=== PATIENT | female | born 1945 | race Caucasian/White ===

== ENCOUNTER → 2017-03-01 | Outpatient (CLI) | payer MEDICARE, OTHER ==
[~2017-03-01] MED LIST: ALLO100T PO; AMLO10TA2 PO; ASPI81CH25 PO; ATOR10TA15 PO; DOCU1CAP39 PO; FERR325T20 PO; FIBE625T PO; FOSI40TA PO; FURO1TAB60 PO; GLUC500T4 PO; HYDR-3516 PO; LISI-515 PO; METO25TA3 PO; MULT-65 PO; OMEP20TA PO; PLAV75TA29 PO; POLY17S PO; POTA-163 PO
[2017-03-01 10:49] LABS: AUTOMATED NEUTROPHIL # 4.4 TH/MM3 (1.8-7.7); BASOPHIL # 0.3 TH/MM3 (0-0.2); BASOPHIL % 2.7 % (0.0-2.0); EOSINOPHIL # 0.5 TH/MM3 (0-0.4); EOSINOPHIL % 5.2 % (0.0-4.0); HEMATOCRIT 38.5 % (35.0-46.0); HEMO FLAGS DIFF FINAL; LYMPH % 35.7 % (9.0-44.0); LYMPHOCYTE # 3.3 TH/MM3 (1.0-4.8); MEAN CELL VOLUME 86.3 FL (80.0-100.0); MEAN CORPUSCULAR HEMOGLOBIN 28.6 PG (27.0-34.0); MEAN CORPUSCULAR HGB CONC 33.2 % (32.0-36.0); MONO % 8.6 % (0.0-8.0); NEUT % 47.8 % (16.0-70.0); PLATELET COUNT 350 TH/MM3 (150-450); RED BLOOD COUNT 4.45 MIL/MM3 (4.00-5.30); RED CELL DISTRIBUTION WIDTH 12.8 % (11.6-17.2); WHITE BLOOD COUNT 9.2 TH/MM3 (4.0-11.0)
[2017-03-01 10:55] LABS: APTT (PATIENT) 26.5 SEC (24.3-30.1); PROTHROMBIN TIME - PATIENT 10.7 SEC (9.8-11.6)
[2017-03-01 11:07] LABS: BLOOD, URINE NEG (NEG); COMMENT (UR) CULT NOT INDICATED; CULTURE IF INDICATED CULT NOT INDICATED; GLUCOSE,URINE NEG (NEG); KETONE, URINE NEG (NEG); MUCUS URINE FEW /lpf (OCC); NITRITE,URINE NEG (NEG); PH, URINE 6.5 (5.0-8.5); SQUAMOUS EPITHELIAL CELL URINE <1 /hpf (0-5); URINE COLOR YELLOW (YELLW/STRAW)
[2017-03-01 11:10] LABS: ANION GAP 9 MEQ/L (5-15); BICARBONATE 26.5 MEQ/L (21.0-32.0); BLOOD UREA NITROGEN 10 MG/DL (7-18); CHLORIDE 104 MEQ/L (98-107); GLOMERULAR FILTRATION RATE 68 ML/MIN (>89); GLUCOSE,FASTING 98 MG/DL (74-99); POTASSIUM 4.1 MEQ/L (3.5-5.1); SODIUM (NA) 139 MEQ/L (136-145)
[2017-03-01 12:24] LABS: MRSA PCR POSITIVE (NEGATIVE); STAPH AUREUS PCR POSITIVE (NEGATIVE)
--- NOTE | 2017-03-01 14:20 | RADRPT ---
EXAM DATE/TIME: 03/01/2017 11:41 [facility] COMPARISON: No previous studies available for comparison. INDICATIONS : Pre-op cardiac surgery. MEDICAL HISTORY : Hypercholesterolemia. Hypertension. SURGICAL HISTORY : Partial hysterectomy. Heel spur removal. Right knee surgery. ENCOUNTER: Initial ACUITY: 1 day PAIN SCORE: 0/10 LOCATION: Bilateral neck PEAK SYSTOLIC VELOCITIES (cm/sec): ICA/CCA RATIO: Right: 2.6 Left: 1.7 ICA: Right: 136 Left: 134 CCA: Right: 52 Left: 81 ECA: Right: 181 Left: 95 VERTEBRAL: Right: 56 antegrade Left: 58 antegrade Elevated flow velocities and ICA/CCA ratios have been found to correlate with increased degrees of vessel stenosis, calculated as percentage of diameter relative to a normal segment of distal ICA/CCA FINDINGS: RIGHT CAROTID: Calcified plaque involving the proximal ICA. The calcified nature generates shadowing limiting graysc rani analysis. The ICA waveform shows minimal spectral broadening. LEFT CAROTID: Calcified plaque involving the proximal ICA. The calcified nature generates shadowing limiting graysc rani analysis. The ICA waveform shows minimal spectral broadening. VERTEBRAL ARTERIES: Antegrade flow is seen in both vertebral arteries. MISCELLANEOUS: None. CONCLUSION: 1. Calcified plaque involving both proximal ICAs with 50-69% stenosis via spectral and velocity evalu ation. The calcified nature limits the downs scale evaluation. Consider CTA of the carotid arteries to further evaluate. 2. Antegrade flow involving both vertebral arteries. Daren Urbina Jr., MD on March 01, 2017 at 14:08 Board Certified Radiologist. This report was verified electronically.
[2017-03-01 15:35] LABS: HEMOGLOBIN A1a 1.1 %; HEMOGLOBIN A1b 1.8 %; HEMOGLOBIN Ao 85.2 %; HEMOGLOBIN P3 3.6 %
--- NOTE | 2017-03-01 16:38 | RADRPT ---
EXAM DATE/TIME: 03/01/2017 12:08 [facility] COMPARISON: No previous studies available for comparison. INDICATIONS : Evaluate for pneumonia, pneumothorax or communicable disease. Pre op aortic valve replacement. MEDICAL HISTORY : None. SURGICAL HISTORY : None. ENCOUNTER: Initial ACUITY: 1 day PAIN SCORE: 0/10 LOCATION: Bilateral chest FINDINGS: PA and lateral views of the chest demonstrate the lungs to be symmetrically aerated without evidence of mass, infiltrate or effusion. The cardiomediastinal contours are unremarkable. Mild degenerative changes evident. CONCLUSION: No acute disease. Jalen Nieves MD FACR on March 01, 2017 at 16:36 Board Certified Radiologist. This report was verified electronically.
--- NOTE | 2017-03-02 09:49 | RSPPFT ---
DATE OF PROCEDURE: 03/01/17 COMMENTS: Spirometry with FVC of 2.6 predicted 2.6, FEV1 of 2.1 predicted 2.1, FEV1/FVC ratio at 80% predicted 82%. IMPRESSION: On the basis of the above, patient's spirometry is within the predicted range.
== END ==
LOC: CPRE 09:57
PROVIDERS: ATTEND Thoracic Surgery (Cardiothoracic Vascular Surgery)
DX: Z01.818 Encounter for other preprocedural examination (principal); I35.0 Nonrheumatic aortic (valve) stenosis; Z01.812 Encounter for preprocedural laboratory examination; Z01.811 Encounter for preprocedural respiratory examination
CPT/HCPCS: 36415; 71020; 80048; 81001; 83036; 85025; 85610; 85730; 86850; 86900; 86901; 87640; 87641; 93880; 94010

== ENCOUNTER 2017-03-03 07:30 | Inpatient (IN) | payer OTHER, MEDICARE ==
[~2017-03-03] VITALS: Ht 157.5 cm; Wt 113.0 kg
[~2017-03-03 07:30] MED LIST changes: -ASPI81CH25 PO; -DOCU1CAP39 PO; -FERR325T20 PO; -FURO1TAB60 PO; -HYDR-3516 PO; -LISI-515 PO; -METO25TA3 PO; -PLAV75TA29 PO; -POLY17S PO; -POTA-163 PO
[2017-03-09] VITALS (8 sets, daily range): BP systolic 94–136; BP diastolic 48–72; PULSE 80–94; RESP 10–20; TEMP 98.1–98.8; O2SAT 92–98
[2017-03-09] MEDS ORDERED: MAGNESIUM SULFATE 1000 MG/2 ML VIAL (PED) IV ONE (05:00)
[2017-03-09] MEDS ORDERED: DEXTROSE 5% IN WATER 100ML INJ 100 ML IV ONE (05:00)
[2017-03-09] MEDS ORDERED: HEPARIN SODIUM - SQ 10,000 UNITS/ML VIAL SQ ONE (05:00)
[2017-03-09] MEDS ORDERED: PHENYLEPHRINE HCL 10 MG/ML VIAL IV ONE (05:00)
[2017-03-09] MEDS ORDERED: VECURONIUM BROMIDE 10 MG VIAL IV ONE (05:00)
[2017-03-09] MEDS ORDERED: ETOMIDATE 40 MG/20 ML VIAL IV PUSH ONE (05:00)
[2017-03-09] MEDS ORDERED: PROTAMINE SULFATE 250 MG/25 ML VIAL IV ONE ×2 (05:00→10:40)
[2017-03-09] MEDS ORDERED: AMINOCAPROIC ACID INJ 250 MG/ML 20 ML VIAL IV ONE (05:00)
[2017-03-09] MEDS ORDERED: METOPROLOL TARTRATE 25 MG TAB PO PRN (05:45)
[2017-03-09] MEDS ORDERED: ceFAZolin 2 GM PREMIX 50 ML IV SCH (05:45)
[2017-03-09] MEDS ORDERED: LACTATED RINGER'S 1000 ML IV PRN (05:45)
[2017-03-09] MEDS ORDERED: CHLORHEXIDINE GLUCONATE 4% SOLN 120 ML BTL TOPICAL SCH (05:45)
[2017-03-09] MEDS ORDERED: SODIUM CHLORIDE 0.9% FLUSH 10 ML FLUSH IV FLUSH PRN ×3 (05:45→13:15)
[2017-03-09] MEDS ORDERED: SODIUM CHLORID 0.9% 500 ML IV PRN (05:45)
[2017-03-09] MEDS ORDERED: INSULIN REGULAR 100 UNITS in NS 100 ML IV SCH (05:45)
[2017-03-09] MEDS ORDERED: POVIDONE IODINE 5% (ANTISEPSIS KIT) 4 APPLICATIONS EACH NARE PRN (05:45)
[2017-03-09] MEDS ORDERED: METOPROLOL TARTRATE 25 MG TAB PO SCH (05:45)
[2017-03-09] MEDS ORDERED: CHLORHEXIDINE GLUCONATE 2 % 1 PACK (2 CLOTHS) TOPICAL PRN (05:45)
[2017-03-09] MEDS ORDERED: INSULIN HUMAN REGULAR 1,000 UNITS/10 ML VIAL SQ PRN (05:45)
[2017-03-09] MEDS ORDERED: VANCOMYCIN HCL 1000 MG VIAL ONE ×2 (06:14→14:03)
[2017-03-09] MEDS ORDERED: ceFAZolin 2 GM PREMIX 50 ML ONE (06:14)
[2017-03-09] MEDS ORDERED: HEPARIN-NS/PF INJ 500 ML ONE (06:14)
[2017-03-09] MEDS ORDERED: POTASSIUM CHLORIDE 20 MEQ/10 ML VIAL ONE (07:04)
[2017-03-09] MEDS ORDERED: CUSTODIOL HTK IRR SOLN 2,000 ML ONE (07:04)
[2017-03-09] MEDS ORDERED: MANNITOL INJ 100 ML ONE (07:05)
[2017-03-09] MEDS ORDERED: SODIUM BICARBONATE 8.4% INJ 100 ML ONE (07:05)
[2017-03-09] MEDS ORDERED: ALBUMIN HUMAN 25% 12.5 GM/50 ML BAGP IV ONE (07:05)
[2017-03-09] MEDS ORDERED: HEPARIN SODIUM - IV 10,000 UNITS/10 ML VIAL ONE (07:06)
[2017-03-09] MEDS ORDERED: DEXMEDETOMIDINE HCL 200 MCG/2 ML VIAL ONE (07:20)
[2017-03-09] MEDS ORDERED: BUPIVACAINE LIPOSO PF 1.3% INJ 20 ML, SODIUM CHLORIDE 0.9% INJ 20 ML, DEXAMETHASONE INJ... ONE ×4 (09:00)
[2017-03-09] MEDS ORDERED: VANCOMYCIN HCL 1000 MG VIAL IV ONE (09:59)
[2017-03-09] MEDS ORDERED: SODIUM CHLORID 0.9% 500 ML INJ 500 ML IV ONE (10:40)
[2017-03-09] MEDS ORDERED: VECURONIUM BROMIDE 20 MG VIAL IV ONE (10:40)
[2017-03-09] MEDS ORDERED: LACTATED RINGER'S 1000 ML INJ 1,000 ML IV ONE (10:40)
[2017-03-09] MEDS ORDERED: NORMOSOL R INJ 2,000 ML IV ONE (10:40)
[2017-03-09] MEDS ORDERED: SODIUM CHLORIDE 0.9% INJ 100 ML IV ONE (10:40)
[2017-03-09] MEDS ORDERED: SODIUM CHLOR 0.9% 250 ML INJ 500 ML IV ONE (10:40)
[2017-03-09] MEDS ORDERED: LACTATED RINGER'S 1000 ML INJ 500 ML IV PRN (13:11)
[2017-03-09] MEDS ORDERED: CLEVIDIPINE INJ 50 ML IV PRN (13:15)
[2017-03-09] MEDS ORDERED: ACETAMINOPHEN 650 MG SUPP RECTAL PRN (13:15)
[2017-03-09] MEDS ORDERED: MORPHINE SULFATE 4 MG/ML INJ IV PRN (13:15)
[2017-03-09] MEDS ORDERED: DEXTROSE 50% IN WATER 50 ML VIAL(D50) IV PUSH PRN (13:15)
[2017-03-09] MEDS ORDERED: POTASSIUM CHLORIDE 20 MEQ CONTROLLED RELEASE TAB PO PRN ×2 (13:15)
[2017-03-09] MEDS ORDERED: RESP: RACEPINEPHRINE 2.25% 0.5 ML NEB NEB PRN (13:15)
[2017-03-09] MEDS ORDERED: CALCIUM CHLORIDE 10% 1 GRAM/10 ML VIAL IV PRN (13:15)
[2017-03-09] MEDS ORDERED: ONDANSETRON HCL 4 MG/2 ML VIAL IV PUSH PRN (13:15)
[2017-03-09] MEDS ORDERED: hydrALAZINE HCL 20 MG/ML VIAL IV PRN (13:15)
[2017-03-09] MEDS ORDERED: NITROGLYCERIN-D5W 50 MG/250 ML 250 ML IV PRN (13:15)
[2017-03-09] MEDS ORDERED: Post-op Orders (for Pharmacy) MISC OTHER ONE (13:15)
[2017-03-09] MEDS ORDERED: CALCIUM CHLORIDE INJ 1 GM in SODIUM CHLORIDE 0.9% INJ 100 ML IV PRN (13:15)
[2017-03-09] MEDS ORDERED: PHENYLEPHRINE INJ 40 MG in DEXTROSE 5% IN WATE 500 ML INJ 496 ML IV PRN ×2 (13:15)
[2017-03-09] MEDS ORDERED: DOPamine INJ PREMIX 500 ML IV PRN (13:15)
[2017-03-09] MEDS ORDERED: POTASSIUM CHLOR 20 MEQ PREMIX 100 ML IV PRN ×3 (13:15)
[2017-03-09] MEDS ORDERED: MAGNESIUM SULFATE INJ 2 GM in SODIUM CHLORIDE 0.9% INJ 100 ML IV PRN ×4 (13:15)
[2017-03-09] MEDS ORDERED: MEPERIDINE HCL 25 MG/ML VIAL IV PRN (13:15)
[2017-03-09] MEDS ORDERED: DEXMEDETOMIDINE INJ 200 MCG in SODIUM CHLORIDE 0.9% INJ 50 ML IV PRN (13:15)
[2017-03-09] MEDS ORDERED: RESP: ALBUTEROL 2.5 MG/IPRATROPIUM 0.5 MG NEB (PRN) NEB (13:15)
[2017-03-09] MEDS ORDERED: METOPROLOL TARTRATE 5 MG/5 ML VIAL IV PUSH PRN (13:15)
--- NOTE | 2017-03-09 14:02 | EKG ---
Date Performed: 03/09/2017 Time Performed: 06:23:29 PTAGE: 71 years EKG: Sinus rhythm NONSPECIFIC T-WAVE ABNORMALITY BORDERLINE ECG NO PREVIOUS TRACING DOCTOR: Al Sears Interpretating Date/Time 03/09/2017 14:01:28
--- NOTE | 2017-03-09 14:10 | PD.OP ---
cc: Keshav Santiago MD Operative Report Date of Surgery: Mar 09, 2017 Preoperative Diagnosis: Postoperative Diagnosis: Procedure: 1. Mini-Sternotomy 2. Aortic Valve Replacement with a 21mm Mosaic Cinch II Tissue valve Surgeon: Keshav Santiago Side Door Man(s): Daryl Rocha Operation and Findings: PREOPERATIVE DIAGNOSES 1. Severe Symptomatic Aortic Stenosis. 2. Mild Aortic Insufficiency 3. Obesity 4. Calcified Aorta POSTOPERATIVE DIAGNOSES Same SURGICAL PROCEDURE 1. Mini-Sternotomy 2. Aortic Valve Replacement with a 21mm Mosaic Cinch II Tissue valve SLIPMAN DENIA Zuluaga ANESTHESIA General endotracheal. SENIOR QUALITY ASSURANCE ENGINEER Lorenza Alex CRNA, Pb Escobedo MD PREPARATION ChloraPrep. NEEDLE, SPONGE AND INSTRUMENT COUNT Correct. DRAINS One 32-Pakistani mediastinal tube. COMPLICATIONS None. INDICATIONS The patient is an 71-year-old lady with severe aortic stenosis, presenting for surgical correction of the above pathology. DESCRIPTION OF PROCEDURE The patient was brought to the operating room and placed supine on the OR table. Following the induction of adequate general endotracheal anesthesia and placement of appropriate monitoring devices, the patient was then prepped and draped in the standard sterile fashion. A 7 cm incision was made overlying the manubrium and the superior aspect of the sternum. Rui-sternotomy was performed upto the 3rd ICS and the sternotomy T-ed at that point. The pericardium was divided in the midline and the cradle created. The patient was systemically heparinized and anticoagulation monitored by serial ACT measurements. Then 2 pursestring sutures of 2-0 Ethibond were placed on the aorta proximal to the takeoff of the innominate artery, another was placed in the right atrial appendage. At this point, aortic and 2-stage venous cannulas were introduced and attached to the arterial and venous components of the bypass circuit respectively. Antegrade cardioplegia cannula and a left ventricular vent, through the right superior pulmonary vein, were also placed. The patient was placed on cardiopulmonary bypass and core cooling initiated to a temperature of 32 degrees centigrade. The crossclamp was applied and 1.5 L of cardioplegia solution (Half-Way HTK) given in an antegrade fashion in addition to topical cooling with slushed saline. Upon achieving adequate diastolic arrest of the heart a transverse aortotomy was performed. Additional 500 mls (Left Main) of cardioplegia was given directly in the coronary ostium. The aortic valve was then excised and sent for microbiologic analysis. The valve and annulus were noted to be very heavily calcified. Circumferential decalcification was performed. The ascending aorta was also noted to be heavily calcified circumferentially at the level of the sinotubular junction. Care was taken to avoid disrupting aortic calcifications and plaques. Horizontal mattress sutures of interrupted 2-0 Ethibond were placed on the aortic annulus with pledgets on the ventricular side. After adequate sizing, a 21 mm Mosaic Cinch II tissue valve was brought in the surgical field and the sutures passed through the skirt and the valve was situated using the Cor-Knot device. This appeared to be a good fit. Gradual rewarming was initiated and the aortotomy closed in 2 layers. This was with 4-0 Prolene; the 1st layer being horizontal mattress, the 2nd layer being running baseball stitch. The cross clamp was removed and upon achieving normothermic cardiac activity, transesophageal echocardiography revealed a well-situated aortic prosthesis with no evidence of perivalvular leak and no aortic stenosis or aortic regurgitation. Protamine was administered. Decannulation was performed and all sites were inspected for hemostasis. At this point the closure was undertaken. The pericardium was reapproximated in the midline. A 32 Fr chest tube was placed and the sternum was reapproximated using stainless steel sternal wires. The musculo-fascial layer was then closed in 3 layers. The patient tolerated the procedure well and was transferred to open heart recovery in stable condition. Keshav Santiago MD Mar 09, 2017 14:10
[2017-03-09] MEDS ORDERED: MIDAZOLAM HCL 5 MG/5 ML VIAL ONE ×2 (14:14)
[2017-03-09] MEDS ORDERED: fentaNYL CITRATE 1000 MCG/20 ML VIAL ONE (14:14)
[2017-03-09] MEDS ORDERED: DOBUTamine PREMIX DRIP 250 ML IV SCH (14:30)
--- NOTE | 2017-03-09 14:55 | RADRPT ---
EXAM DATE/TIME: 03/09/2017 14:21 [facility] COMPARISON: No previous studies available for comparison. INDICATIONS : Post CABG. MEDICAL HISTORY : Hypercholesterolemia. Hypertension. SURGICAL HISTORY : Partial hysterectomy. Heel spur removal. Right knee surgery. ENCOUNTER: Initial ACUITY: 1 day PAIN SCORE: Non-responsive. LOCATION: Bilateral chest FINDINGS: The cardiac silhouette is enlarged in transverse diameter. Support lines and tubes are in satisfactor y position. Median sternotomy wires are present. There is prominence of the central pulmonary vascula ture with indistinct vascular margins compatible with vascular congestion but no evidence of overt fa ilure. CONCLUSION: 1. Postsurgical changes as above. Pb Mccracken MD on March 09, 2017 at 14:53 Board Certified Radiologist. This report was verified electronically.
[2017-03-09] MEDS: SODIUM CHLORIDE 0.9% FLUSH 10 ML FLUSH IV FLUSH SCH ×2 (14:59→21:12)
[2017-03-09] MEDS: ACETAMINOPHEN 1000 MG/100 ML VIAL IV SCH ×2 (14:59→21:11)
[2017-03-09] MEDS: ALBUMIN HUMAN 5% 12.5 GM/250 ML BOTTLE IV PRN ×2 (15:43→16:36)
[2017-03-09] MEDS ORDERED: INSULIN REGULAR (IV INFUSION) 100 UNITS in SODIUM CHLORIDE 0.9% INJ 99 ML IV SCH (16:00)
[2017-03-09] MEDS: VANCOMYCIN INJ 1,000 MG in SODIUM CHLOR 0.9% 250 ML INJ 250 ML IV SCH (18:31)
[2017-03-09] MEDS: RESP: ALBUTEROL 2.5 MG/IPRATROPIUM 0.5 MG NEB (SCH) NEB ×2 (19:07→22:22)
[2017-03-09] MEDS: AMIODARONE 200 MG TAB PO SCH (21:11)
[2017-03-10] VITALS (16 sets, daily range): BP systolic 122–157; BP diastolic 57–78; PULSE 79–94; RESP 16–20; TEMP 97.7–98.9; O2SAT 94–98
[2017-03-10] MEDS: KETOROLAC TROMETHAMINE 30 MG/ML (IVP) VIAL IV PUSH PRN ×2 (01:12→11:48)
[2017-03-10] MEDS: ACETAMINOPHEN 1000 MG/100 ML VIAL IV SCH ×2 (03:36→08:29)
[2017-03-10] MEDS: RESP: ALBUTEROL 2.5 MG/IPRATROPIUM 0.5 MG NEB (SCH) NEB ×3 (03:51→21:22)
[2017-03-10 05:10] LABS: HEMATOCRIT 25.9 % (35.0-46.0); MEAN CELL VOLUME 87.3 FL (80.0-100.0); MEAN CORPUSCULAR HEMOGLOBIN 29.6 PG (27.0-34.0); MEAN CORPUSCULAR HGB CONC 33.9 % (32.0-36.0); PLATELET COUNT 195 TH/MM3 (150-450); RED BLOOD COUNT 2.97 MIL/MM3 (4.00-5.30); RED CELL DISTRIBUTION WIDTH 12.7 % (11.6-17.2); REVIEW FLAG FINAL; WHITE BLOOD COUNT 17.7 TH/MM3 (4.0-11.0)
--- NOTE | 2017-03-10 05:28 | RADRPT ---
EXAM DATE/TIME: 03/10/2017 04:00 [facility] COMPARISON: CHEST SINGLE AP, March 09, 2017, 14:21. INDICATIONS : Short of breath. MEDICAL HISTORY : None. SURGICAL HISTORY : None. ENCOUNTER: Subsequent ACUITY: 3 days PAIN SCORE: 0/10 LOCATION: Bilateral chest FINDINGS: Patient has been extubated and NG tube removed. Stable right IJ central line and mediastinal drain in place. Lungs are hypoaerated with mild bibasilar airspace disease. Cardiomegaly some contours are st able. Remainder of exam is unchanged. CONCLUSION: 1. Increased bilateral lower lobe airspace disease following extubation consistent with increased ate lectasis. Alex Alejandro MD on March 10, 2017 at 5:26 Board Certified Radiologist. This report was verified electronically.
[2017-03-10 05:33] LABS: BICARBONATE 22.9 MEQ/L (21.0-32.0); POTASSIUM 3.9 MEQ/L (3.5-5.1)
[2017-03-10] MEDS: PANTOPRAZOLE SOD 40 MG DELAYED RELEASE TAB PO SCH (05:39)
[2017-03-10] MEDS: VANCOMYCIN INJ 1,000 MG in SODIUM CHLOR 0.9% 250 ML INJ 250 ML IV SCH ×2 (05:39→16:38)
[2017-03-10] MEDS ORDERED: FUROSEMIDE 40 MG/4 ML VIAL ONE (08:06)
[2017-03-10] MEDS: SODIUM CHLORIDE 0.9% FLUSH 10 ML FLUSH IV FLUSH SCH ×2 (08:28→20:01)
[2017-03-10] MEDS: CLOPIDOGREL 75 MG TAB PO SCH (08:28)
[2017-03-10] MEDS: ASPIRIN 81 MG CHEW TAB PO SCH (08:28)
[2017-03-10] MEDS: AMIODARONE 200 MG TAB PO SCH ×2 (08:28→20:00)
[2017-03-10] MEDS ORDERED: FUROSEMIDE 40 MG/4 ML VIAL IV PUSH ONE (08:30)
[2017-03-10] MEDS ORDERED: SOD PHOSPHATE/SOD BIPHOSPHATE (ADULT) ENEMA 133ML RECTAL PRN (09:15)
[2017-03-10] MEDS ORDERED: DEXTROSE 50% IN WATER 50 ML VIAL(D50) IV PRN (09:15)
[2017-03-10] MEDS ORDERED: BISACODYL 10 MG SUPP RECTAL PRN (09:15)
[2017-03-10] MEDS ORDERED: GLUCAGON 1 MG/ML VIAL OTHER PRN (09:15)
[2017-03-10] MEDS ORDERED: POTASSIUM CHLORIDE 20 MEQ CONTROLLED RELEASE TAB PO ONE (10:00)
[2017-03-10] MEDS ORDERED: PILL SPLITTER OTHER PRN (10:00)
[2017-03-10] MEDS: METOPROLOL TARTRATE 25 MG TAB PO SCH ×2 (11:34→20:00)
[2017-03-10] MEDS: DOCUSATE SODIUM 100 MG CAP PO SCH ×2 (11:34→20:00)
[2017-03-10] MEDS: INSULIN ASPART SUPPLEMENTAL SCALE SQ SCH ×4 (11:47→23:05)
--- NOTE | 2017-03-10 12:56 | PD.CAR.PN ---
CVT Progress Note CVT: POD #: 1 Subjective/Hospital Course: 71/ female admitted as an outpt , recent hx of syncopal episode, with full ED workup / Echo revealed severe Aortic stenosis , preserved LV function , She underwent cardiac cath which revealed normal coronaries PMH: severe , GERD, HTN, Obesity, HLP surgery : 03/09 Mini-Sternotomy, Aortic Valve Replacement with a 21mm Mosaic Cinch II Tissue valve crystalloid 3200cc, extubated after surgery 03/10 doing well, no pressors, weaned off insulin gtt gentle diuresis on ASA, Plavix amiodarone , start low dose BB transfer to stepdown unit Objective: GENERAL: A & O x 3 SKIN: Warm and dry. prevena dressing to chest HEAD: Atraumatic. Normocephalic. EYES: Pupils equal and round. No scleral icterus. No injection or drainage. ENT: No nasal bleeding or discharge. Mucous membranes pink and moist. NECK: Trachea midline. No JVD. CARDIOVASCULAR: Regular rate and rhythm. mild general edema RESPIRATORY: No accessory muscle use. Clear to auscultation. Breath sounds equal bilaterally. diminished bases , chest tube to wall suction , no air leak / drained 200cc/ 12 hrs GASTROINTESTINAL: Abdomen soft, non-tender, nondistended. Hepatic and splenic margins not palpable. MUSCULOSKELETAL: Extremities without clubbing, cyanosis, or edema. No obvious deformities. NEUROLOGICAL: Awake and alert. No obvious cranial nerve deficits. Motor grossly within normal limits. Five out of 5 muscle strength in the arms and legs. Normal speech. PSYCHIATRIC: Appropriate mood and affect; insight and judgment normal. Vital Signs Date Time Temp Pulse Resp B/P (MAP) Pulse Ox O2 Delivery O2 Flow Rate FiO2 03/10/17 12:37 18 03/10/17 12:00 98.4 82 16 126/71 (89) 97 03/10/17 12:00 98.4 82 16 126/71 (89) 97 03/10/17 12:00 92 03/10/17 12:00 Nasal Cannula 4.00 03/10/17 11:00 16 03/10/17 03:00 98.9 87 20 144/58 (86) 97 03/10/17 03:00 97 Nasal Cannula 4.00 03/10/17 03:00 87 03/10/17 02:09 18 03/09/17 23:00 97 Nasal Cannula 4.00 03/09/17 23:00 90 03/09/17 23:00 98.8 90 20 122/57 (78) 97 129/57 (81) 03/09/17 22:18 98 Nasal Cannula 4.00 03/09/17 19:00 90 03/09/17 19:00 98 Nasal Cannula 4.00 03/09/17 19:00 98.6 90 18 136/72 (93) 98 134/62 (86) 03/09/17 17:15 97 Nasal Cannula 4.00 03/09/17 17:15 98 Nasal Cannula 4.00 03/09/17 17:15 97 Nasal Cannula 4 03/09/17 16:04 50 03/09/17 16:00 80 03/09/17 15:00 98.1 86 13 94/58 (70) 98 03/09/17 15:00 86 03/09/17 14:00 99 Mechanical Ventilator 50 03/09/17 13:52 50 03/09/17 13:52 98.2 94 10 97/48 (64) 92 98/58 (71) Labs: Laboratory Tests Test 03/10/17 04:10 White Blood Count 17.7 TH/MM3 (4.0-11.0) Red Blood Count 2.97 MIL/MM3 (4.00-5.30) Hemoglobin 8.8 GM/DL (11.6-15.3) Hematocrit 25.9 % (35.0-46.0) Mean Corpuscular Volume 87.3 FL (80.0-100.0) Mean Corpuscular Hemoglobin 29.6 PG (27.0-34.0) Mean Corpuscular Hemoglobin Concent 33.9 % (32.0-36.0) Red Cell Distribution Width 12.7 % (11.6-17.2) Platelet Count 195 TH/MM3 (150-450) Mean Platelet Volume 10.8 FL (7.0-11.0) Blood Urea Nitrogen 13 MG/DL (7-18) Creatinine 0.81 MG/DL (0.50-1.00) Random Glucose 135 MG/DL (74-106) Calcium Level 8.2 MG/DL (8.5-10.1) Magnesium Level 2.0 MG/DL (1.5-2.5) Sodium Level 140 MEQ/L (136-145) Potassium Level 3.9 MEQ/L (3.5-5.1) Chloride Level 107 MEQ/L (98-107) Carbon Dioxide Level 22.9 MEQ/L (21.0-32.0) Anion Gap 10 MEQ/L (5-15) Estimat Glomerular Filtration Rate 70 ML/MIN (>89) Result Diagram: 03/10/1740903/10/17409 Telemetry: NSR (1) Severe aortic stenosis (2) S/P AVR (aortic valve replacement) Plan: on ASA, Plavix , start low dose BB gentle diuresis OOB, ambulate CM for HHC at discharge transfer to stepdown unit (3) Hyperlipemia Plan: on statin (4) Hypertension Plan: controlled (5) GERD (gastroesophageal reflux disease) Shira Bustillo Mar 10, 2017 12:56
--- NOTE | 2017-03-10 13:00 | HHI.FF ---
Face to Face Verification Diagnosis: (1) Severe aortic stenosis (2) S/P AVR (aortic valve replacement) (3) Hypertension (4) GERD (gastroesophageal reflux disease) (5) Hyperlipemia Physical Therapy Order: Evaluate and Treat Home Health Nursing Order: Signs/symptoms of disease process Medication education-adverse effect Wound care and dressing changes Nursing assessment with vital signs Instructions: Heart and Vascular Surgery patients *Special attention to sternal dressing Mandatory frequency Assess and evaluation, 4 days in a row The next week 3X week 2 times a week for 4 weeks 1 time a week for 5 weeks Schedule Heart and Vascular patients for full 60 day certification period Initial visit Review Open Heart Surgery Discharge Instructions (Sternal precautions, Activity, Elastic hose, Incision care, Driving, Incentive spirometry, Smoking, [place], Work and other) Need Betadine to paint incision Medication reconciliation Importance of follow up care/ check on appointments Make calendar record temperature daily When to call [facility] nurse, review instructions, phone list Incentive Spirometry, demonstration Visit 1- Begin discharge instruction for patient family and/ or caregiver using teach back method- Signs and symptoms of infection Disease characteristics Medicines and side effects Foods and nutrition/ appetite Infection control/ hand washing/ hygiene Visit 2- Continue teaching Discharge instructions- include additional information on smoking cessation , sternal dressing (sternal vac) Visit 3- Continue teaching- Cough and deep breathing, incision monitoring. Choose my plate Visit 4- Continue teaching- Discuss limitations Discuss how they are feeling Discuss progress toward goals Remaining visits- continue teaching and monitoring PREVENA Single Use Negative Wound Therapy System Caregiver Instruction Sheet 1. A Prevena dressing system was applied to the chest incision during surgery , to promote wound healing. It works via a suction device (negative pressure wound therapy) to remove low to moderate levels of exudate (drainage) and infectious materials. We recommend that the device stay in place for up to seven days, from day of surgery. 2. Day of Surgery___/11/18 Day of Removal ____/06/20 3. The dressing should only be removed by a health care manager. Please arrange removal of device to coincide with Home Health visit and or with Nursing staff at Rehab 4. If skin reddening or irritation of skin occurs, or excessive drainage, please notify the Cardiovascular Surgeons office at [phone]. 5. Light showering is permissible; however the pump should be disconnected and placed in safe location, where it will not get wet. The dressing should not be exposed to direct spray or submerged in water. No bath tub / shower only. Ensure the end of the tubing attached to the dressing is facing down so that water does not enter the top of the tube. 6. To remove Prevena dressing: press purple button to turn off device / remove the suction. Then disconnect the tubing from the pump. The fixation strips should be stretched away from the skin and the dressing lifted at one corner and peeled back until it has been fully removed. 7. After removal, it is ok to shower daily using liquid dial soap and clean wash cloth, rinse and pat dry, and leave incision open to air dry. For any concerns regarding Prevena dressing, and or wounds, please contact Lita Fink, patient navigator at [phone] or notify the Cardiovascular Surgeons office at [phone]. Incentive spirometry Q1 hr x 10, while awake, also use acapella device hourly whole awake Sternal Breast Bone Precautions: NO pushing or pulling, ( pt must use sternal pillow to support chest with all activities and with coughing ( takes up to 3 months breast bone to heal ) All females to wear sternal bra , launder as needed Daily incision care: ok to shower daily, no tub bath. Wash all incisions with liquid dial soap, clean wash cloth to each site, rinse and pat dry. Observe for any signs of infection, such as drainage which is dark yellow, downs, green or foul smelling. Immediately report to the surgeon any drainage from the chest incision, or legs, and for any abnormal drainage from the chest tube sites. Notify surgeon if any temp >101.5 degrees F. When specialty dressing removed/ or if you do not have one, continue to shower daily as above, then rinse and pat incision dry and paint with betadine daily x 5 days. Allow steri strips to fall off if you have any. Avoid lotions, creams, salves, oils, etc. for the first month Please see attached forms for additional instructions regarding post Open Heart specialty wound vacuum dressings. GELY or Prevena , Dressing to be removed by Nursing staff on ___/06/20____ F/U appointment: as per DC instructions: PCP in 2 weeks, CV surgeon 2 weeks, Auto Damage Estimator 3-4 weeks For any questions regarding incisions/ dressing / meds / post op care or above Symptoms, Wednesday 8am-5pm Heart & Vascular Surgery Office ( Dr. Santiago & Dr. Sommer), After Hours / Nights (5pm -8am) Weekends and Holidays Please call [facility] ([facility]) Charge Nurse I have seen patient Isabel Beckman on 03/10/17. My clinical findings support the need for the requested home health care services because: Deconditioned w/ increased weakness I certify that my clinical findings support that this patient is homebound because: Post-op weakness Shira Bustillo Mar 10, 2017 13:00
[2017-03-10] MEDS: ACETAMINOPHEN/HYDROcodone 325 MG/5 MG TAB PO PRN ×2 (16:39→20:00)
--- NOTE | 2017-03-10 17:51 | EKG ---
Date Performed: 03/10/2017 Time Performed: 05:47:28 PTAGE: 71 years EKG: Sinus rhythm Extensive T wave changes are nonspecific Compared to previous tracing, T waves are flatter [place] e ECG PREVIOUS TRACING : 03/09/2017 06.23 DOCTOR: Rene Lamas Interpretating Date/Time 03/10/2017 17:50:05
[2017-03-10] MEDS: SENNOSIDES 8.6 MG TAB PO SCH (20:00)
[2017-03-10] MEDS: ATORVASTATIN 10 MG TAB PO SCH (20:01)
[2017-03-11] VITALS (28 sets, daily range): BP systolic 119–179; BP diastolic 32–90; PULSE 72–112; RESP 16–22; TEMP 97.5–98; O2SAT 92–96
[2017-03-11] MEDS: INSULIN ASPART SUPPLEMENTAL SCALE SQ SCH ×5 (02:00→21:00)
[2017-03-11] MEDS: ACETAMINOPHEN/HYDROcodone 325 MG/5 MG TAB PO PRN ×5 (02:56→21:03)
[2017-03-11 05:34] LABS: AUTOMATED NEUTROPHIL # 15.7 TH/MM3 (1.8-7.7); BASOPHIL # 0.1 TH/MM3 (0-0.2); BASOPHIL % 0.3 % (0.0-2.0); EOSINOPHIL % 0.1 % (0.0-4.0); HEMATOCRIT 25.7 % (35.0-46.0); HEMO FLAGS DIFF FINAL; LYMPH % 13.3 % (9.0-44.0); LYMPHOCYTE # 2.7 TH/MM3 (1.0-4.8); MEAN CELL VOLUME 87.4 FL (80.0-100.0); MEAN CORPUSCULAR HEMOGLOBIN 29.9 PG (27.0-34.0); MEAN CORPUSCULAR HGB CONC 34.2 % (32.0-36.0); MONO % 7.8 % (0.0-8.0); NEUT % 78.5 % (16.0-70.0); PLATELET COUNT 185 TH/MM3 (150-450); RED BLOOD COUNT 2.94 MIL/MM3 (4.00-5.30); RED CELL DISTRIBUTION WIDTH 13.2 % (11.6-17.2)
[2017-03-11 05:56] LABS: BICARBONATE 27.1 MEQ/L (21.0-32.0); MAGNESIUM 2.4 MG/DL (1.5-2.5); POTASSIUM 3.9 MEQ/L (3.5-5.1)
[2017-03-11] MEDS: PANTOPRAZOLE SOD 40 MG DELAYED RELEASE TAB PO SCH (06:32)
[2017-03-11] MEDS: RESP: ALBUTEROL 2.5 MG/IPRATROPIUM 0.5 MG NEB (SCH) NEB ×3 (08:05→19:33)
[2017-03-11] MEDS: AMIODARONE 200 MG TAB PO SCH ×2 (09:24→21:03)
[2017-03-11] MEDS: DOCUSATE SODIUM 100 MG CAP PO SCH ×2 (09:25→21:03)
[2017-03-11] MEDS: MAGNESIUM HYDROXIDE SUSP 30 ML CUP PO SCH (09:25)
[2017-03-11] MEDS: POLYETHYLENE GLYCOL 17 GM PKG PO SCH (09:25)
[2017-03-11] MEDS: MULTIVITAMINS/MINERALS THERAPEUTIC TAB PO SCH (09:25)
[2017-03-11] MEDS: CLOPIDOGREL 75 MG TAB PO SCH (09:25)
[2017-03-11] MEDS: SODIUM CHLORIDE 0.9% FLUSH 10 ML FLUSH IV FLUSH SCH ×2 (09:26→21:04)
[2017-03-11] MEDS: METOPROLOL TARTRATE 25 MG TAB PO SCH ×2 (09:26→21:03)
[2017-03-11] MEDS: ASPIRIN 81 MG CHEW TAB PO SCH (09:26)
[2017-03-11] MEDS: ALLOPURINOL 100 MG TAB PO SCH (09:26)
--- NOTE | 2017-03-11 10:25 | PD.CAR.PN ---
CVT Progress Note CVT: POD #: 2 Subjective/Hospital Course: 71/ female admitted as an outpt , recent hx of syncopal episode, with full ED workup / Echo revealed severe Aortic stenosis , preserved LV function , She underwent cardiac cath which revealed normal coronaries PMH: severe , GERD, HTN, Obesity, HLP surgery : 03/09 Mini-Sternotomy, Aortic Valve Replacement with a 21mm Mosaic Cinch II Tissue valve crystalloid 3200cc, extubated after surgery 03/10 doing well, no pressors, weaned off insulin gtt gentle diuresis on ASA, Plavix amiodarone , start low dose BB transfer to stepdown unit 03/11 ambulated in [facility] feels fair, additional BB given and diuretic chest tube drained 130/ 12 hrs re-eval for removal later today Objective: GENERAL: SKIN: Warm and dry. prevena dressing to chest HEAD: Normocephalic. EYES: No scleral icterus. No injection or drainage. NECK: Supple, trachea midline. No JVD or lymphadenopathy. CARDIOVASCULAR: Regular rate and rhythm without murmurs, gallops, or rubs. RESPIRATORY: Breath sounds equal bilaterally. No accessory muscle use. diminished in bases , chest tube to wall suction, no air leak GASTROINTESTINAL: Abdomen soft, non-tender, nondistended. MUSCULOSKELETAL: No cyanosis, or edema. BACK: Nontender without obvious deformity. No CVA tenderness. Vital Signs Date Time Temp Pulse Resp B/P (MAP) Pulse Ox O2 Delivery O2 Flow Rate FiO2 03/11/17 08:12 92 Nasal Cannula 3.00 03/11/17 06:00 89 03/11/17 05:00 88 03/11/17 04:00 86 03/11/17 03:00 96 Nasal Cannula 3.00 03/11/17 03:00 89 03/11/17 03:00 97.8 89 16 156/74 (101) 96 03/11/17 02:00 85 03/11/17 01:00 83 03/11/17 00:00 82 03/10/17 23:10 Nasal Cannula 3.00 03/10/17 23:00 83 03/10/17 23:00 97 Nasal Cannula 4.00 03/10/17 23:00 98.0 86 16 122/64 (83) 97 03/10/17 22:00 84 03/10/17 21:41 97 Nasal Cannula 4.00 03/10/17 21:00 84 03/10/17 20:00 86 03/10/17 19:45 98.0 89 18 126/57 (80) 95 Arterial Line 03/10/17 19:45 95 Nasal Cannula 4.00 03/10/17 19:00 91 03/10/17 18:00 90 03/10/17 17:22 16 03/10/17 17:00 88 03/10/17 16:00 Nasal Cannula 4.00 03/10/17 16:00 88 03/10/17 16:00 98.3 87 18 157/77 (103) 97 03/10/17 15:00 90 03/10/17 14:00 81 03/10/17 13:00 79 03/10/17 12:37 18 03/10/17 12:00 98.4 82 16 126/71 (89) 97 03/10/17 12:00 98.4 82 16 126/71 (89) 97 03/10/17 12:00 92 03/10/17 12:00 Nasal Cannula 4.00 03/10/17 11:00 16 Labs: Laboratory Tests Test 03/11/17 05:00 White Blood Count 20.0 TH/MM3 (4.0-11.0) Red Blood Count 2.94 MIL/MM3 (4.00-5.30) Hemoglobin 8.8 GM/DL (11.6-15.3) Hematocrit 25.7 % (35.0-46.0) Mean Corpuscular Volume 87.4 FL (80.0-100.0) Mean Corpuscular Hemoglobin 29.9 PG (27.0-34.0) Mean Corpuscular Hemoglobin Concent 34.2 % (32.0-36.0) Red Cell Distribution Width 13.2 % (11.6-17.2) Platelet Count 185 TH/MM3 (150-450) Mean Platelet Volume 10.5 FL (7.0-11.0) Neutrophils (%) (Auto) 78.5 % (16.0-70.0) Lymphocytes (%) (Auto) 13.3 % (9.0-44.0) Monocytes (%) (Auto) 7.8 % (0.0-8.0) Eosinophils (%) (Auto) 0.1 % (0.0-4.0) Basophils (%) (Auto) 0.3 % (0.0-2.0) Neutrophils # (Auto) 15.7 TH/MM3 (1.8-7.7) Lymphocytes # (Auto) 2.7 TH/MM3 (1.0-4.8) Monocytes # (Auto) 1.6 TH/MM3 (0-0.9) Eosinophils # (Auto) 0.0 TH/MM3 (0-0.4) Basophils # (Auto) 0.1 TH/MM3 (0-0.2) CBC Comment DIFF FINAL Differential Comment Blood Urea Nitrogen 22 MG/DL (7-18) Creatinine 0.88 MG/DL (0.50-1.00) Random Glucose 136 MG/DL (74-106) Calcium Level 8.4 MG/DL (8.5-10.1) Magnesium Level 2.4 MG/DL (1.5-2.5) Sodium Level 138 MEQ/L (136-145) Potassium Level 3.9 MEQ/L (3.5-5.1) Chloride Level 105 MEQ/L (98-107) Carbon Dioxide Level 27.1 MEQ/L (21.0-32.0) Anion Gap 6 MEQ/L (5-15) Estimat Glomerular Filtration Rate 64 ML/MIN (>89) Result Diagram: 03/11/17 0500 03/11/17 0500 Telemetry: NSR (1) Severe aortic stenosis (2) S/P AVR (aortic valve replacement) Plan: on ASA, Plavix , increase BB gentle diuresis OOB, ambulate CM for [facility] at discharge + leukocytosis, recheck labs in am , no fever check UA (3) Hyperlipemia Plan: on statin (4) Hypertension Plan: controlled (5) GERD (gastroesophageal reflux disease) Shira Bustillo Mar 11, 2017 10:25
[2017-03-11] MEDS ORDERED: FUROSEMIDE 40 MG/4 ML VIAL IV PUSH ONE (11:30)
[2017-03-11] MEDS ORDERED: METOPROLOL TARTRATE 25 MG TAB PO ONE (11:30)
[2017-03-11] MEDS ORDERED: POTASSIUM CHLORIDE 10 MEQ CONTROLLED RELEASE TAB PO ONE (12:00)
[2017-03-11] MEDS: LISINOPRIL 20 MG TAB PO SCH (15:00)
[2017-03-11] MEDS: ACETAMINOPHEN 325 MG TAB PO PRN (17:52)
[2017-03-11] MEDS: SENNOSIDES 8.6 MG TAB PO SCH (21:00)
[2017-03-11] MEDS: ATORVASTATIN 10 MG TAB PO SCH (21:03)
[2017-03-12] VITALS (19 sets, daily range): BP systolic 116–144; BP diastolic 62–70; PULSE 76–94; RESP 18–20; TEMP 98–98.8; O2SAT 91–96
[2017-03-12] MEDS: ACETAMINOPHEN/HYDROcodone 325 MG/5 MG TAB PO PRN ×3 (01:30→13:32)
[2017-03-12 05:54] LABS: AUTOMATED NEUTROPHIL # 10.6 TH/MM3 (1.8-7.7); BASOPHIL # 0.1 TH/MM3 (0-0.2); BASOPHIL % 0.5 % (0.0-2.0); EOSINOPHIL # 0.3 TH/MM3 (0-0.4); EOSINOPHIL % 1.7 % (0.0-4.0); HEMATOCRIT 23.5 % (35.0-46.0); HEMO FLAGS DIFF FINAL; LYMPH % 20.5 % (9.0-44.0); LYMPHOCYTE # 3.1 TH/MM3 (1.0-4.8); MEAN CELL VOLUME 87.6 FL (80.0-100.0); MEAN CORPUSCULAR HEMOGLOBIN 29.3 PG (27.0-34.0); MEAN CORPUSCULAR HGB CONC 33.4 % (32.0-36.0); MONO % 7.7 % (0.0-8.0); NEUT % 69.6 % (16.0-70.0); PLATELET COUNT 196 TH/MM3 (150-450); RED BLOOD COUNT 2.68 MIL/MM3 (4.00-5.30); RED CELL DISTRIBUTION WIDTH 13.2 % (11.6-17.2); WHITE BLOOD COUNT 15.3 TH/MM3 (4.0-11.0)
[2017-03-12] MEDS: INSULIN ASPART SUPPLEMENTAL SCALE SQ SCH ×2 (06:13→11:00)
[2017-03-12] MEDS: PANTOPRAZOLE SOD 40 MG DELAYED RELEASE TAB PO SCH (06:13)
[2017-03-12] MEDS: ACETAMINOPHEN 325 MG TAB PO PRN (06:13)
[2017-03-12 06:16] LABS: BICARBONATE 28.1 MEQ/L (21.0-32.0)
--- NOTE | 2017-03-12 06:54 | RADRPT ---
EXAM DATE/TIME: 03/12/2017 06:16 [facility] COMPARISON: CHEST SINGLE AP, March 09, 2017, 14:21. CHEST SINGLE AP, March 10, 2017, 4:00. EXTERNAL COMPARISON : INDICATIONS : Stauts post chest tube removal. Evaluate for pneumothorax. MEDICAL HISTORY : None. SURGICAL HISTORY : None. ENCOUNTER: Subsequent ACUITY: 2 days PAIN SCORE: 0/10 LOCATION: chest FINDINGS: Interval removal of right IJ central line and apparent mediastinal drain or central right-sided chest tube. Mild interval progression of bilateral lower lobe air space consolidation. Cardiomediastinal c ontours are stable. Remainder of exam is unchanged. CONCLUSION: 1. No significant pneumothorax. 2. Mildly worsening bilateral lower lobe airspace consolidation. Alex Alejandro MD on March 12, 2017 at 6:50 Board Certified Radiologist. This report was verified electronically.
[2017-03-12] MEDS: RESP: ALBUTEROL 2.5 MG/IPRATROPIUM 0.5 MG NEB (SCH) NEB (07:35)
[2017-03-12] MEDS: MULTIVITAMINS/MINERALS THERAPEUTIC TAB PO SCH (08:29)
[2017-03-12] MEDS: AMIODARONE 200 MG TAB PO SCH (08:29)
[2017-03-12] MEDS: DOCUSATE SODIUM 100 MG CAP PO SCH (08:29)
[2017-03-12] MEDS: LISINOPRIL 20 MG TAB PO SCH (08:29)
[2017-03-12] MEDS: METOPROLOL TARTRATE 25 MG TAB PO SCH (08:29)
[2017-03-12] MEDS: POLYETHYLENE GLYCOL 17 GM PKG PO SCH (08:30)
[2017-03-12] MEDS: ASPIRIN 81 MG CHEW TAB PO SCH (08:30)
[2017-03-12] MEDS: SODIUM CHLORIDE 0.9% FLUSH 10 ML FLUSH IV FLUSH SCH (08:30)
[2017-03-12] MEDS: CLOPIDOGREL 75 MG TAB PO SCH (08:30)
[2017-03-12] MEDS: ALLOPURINOL 100 MG TAB PO SCH (08:30)
[2017-03-12] MEDS: MAGNESIUM HYDROXIDE SUSP 30 ML CUP PO SCH (08:30)
[2017-03-12] MEDS ORDERED: FUROSEMIDE 40 MG/4 ML VIAL IV PUSH ONE (10:00)
[2017-03-12] MEDS ORDERED: POTASSIUM CHLORIDE 20 MEQ CONTROLLED RELEASE TAB PO ONE (10:00)
--- NOTE | 2017-03-12 10:26 | PD.CAR.PN ---
CVT Progress Note Subjective/Hospital Course: 71/ female admitted as an outpt , recent hx of syncopal episode, with full ED workup / Echo revealed severe Aortic stenosis , preserved LV function , She underwent cardiac cath which revealed normal coronaries PMH: severe , GERD, HTN, Obesity, HLP surgery : 03/09 Mini-Sternotomy, Aortic Valve Replacement with a 21mm Mosaic Cinch II Tissue valve crystalloid 3200cc, extubated after surgery 03/10 doing well, no pressors, weaned off insulin gtt gentle diuresis on ASA, Plavix amiodarone , start low dose BB transfer to stepdown unit 03/11 ambulated in hallway feels fair, additional BB given and diuretic chest tube drained 130/ 12 hrs re-eval for removal later today 03/12 doing well, on room air feels fair will eval for dc to rehab if bed available continue diuresis start ferrous sulfate HGB 7.8 pt encouraged to cough deep breathe, use IS Objective: GENERAL: SKIN: Warm and dry. prevena dressing to chest HEAD: Normocephalic. EYES: No scleral icterus. No injection or drainage. NECK: Supple, trachea midline. No JVD or lymphadenopathy. CARDIOVASCULAR: Regular rate and rhythm without murmurs, gallops, or rubs. RESPIRATORY: Breath sounds equal bilaterally. No accessory muscle use. diminished in bases , R>L GASTROINTESTINAL: Abdomen soft, non-tender, nondistended. MUSCULOSKELETAL: No cyanosis, or edema. BACK: Nontender without obvious deformity. No CVA tenderness. Vital Signs Date Time Temp Pulse Resp B/P (MAP) Pulse Ox O2 Delivery O2 Flow Rate FiO2 03/12/17 08:15 98.2 89 20 144/68 (93) 91 03/12/17 08:15 91 Room Air 03/12/17 07:35 96 Nasal Cannula 1.00 03/12/17 07:01 82 03/12/17 06:00 81 03/12/17 05:00 76 03/12/17 04:00 78 03/12/17 03:30 95 Nasal Cannula 2.00 03/12/17 03:30 98.0 80 18 116/62 (80) 95 03/12/17 03:00 79 03/12/17 02:00 79 03/12/17 01:00 82 03/12/17 00:00 77 03/11/17 23:30 95 Nasal Cannula 2.00 03/11/17 23:30 97.8 72 18 119/59 (79) 95 03/11/17 23:00 83 03/11/17 22:00 90 03/11/17 21:00 108 03/11/17 20:30 Nasal Cannula 2.00 03/11/17 20:00 93 Room Air 03/11/17 20:00 98.0 100 18 150/72 (98) 93 03/11/17 20:00 98 03/11/17 19:38 92 03/11/17 19:00 92 03/11/17 18:10 89 03/11/17 17:00 92 03/11/17 16:00 100 03/11/17 15:09 97.8 101 22 179/90 (119) 95 03/11/17 15:06 95 Room Air 03/11/17 15:00 100 03/11/17 14:00 92 03/11/17 13:00 88 03/11/17 12:00 86 03/11/17 11:00 96 Nasal Cannula 3.00 03/11/17 11:00 97.5 92 18 127/58 (81) 95 03/11/17 11:00 87 Labs: Laboratory Tests Test 03/12/17 04:20 03/12/17 05:20 Blood Urea Nitrogen 19 MG/DL (7-18) Creatinine 0.70 MG/DL (0.50-1.00) Random Glucose 113 MG/DL (74-106) Calcium Level 8.0 MG/DL (8.5-10.1) Sodium Level 134 MEQ/L (136-145) Potassium Level 4.0 MEQ/L (3.5-5.1) Chloride Level 100 MEQ/L (98-107) Carbon Dioxide Level 28.1 MEQ/L (21.0-32.0) Anion Gap 6 MEQ/L (5-15) Estimat Glomerular Filtration Rate 83 ML/MIN (>89) White Blood Count 15.3 TH/MM3 (4.0-11.0) Red Blood Count 2.68 MIL/MM3 (4.00-5.30) Hemoglobin 7.8 GM/DL (11.6-15.3) Hematocrit 23.5 % (35.0-46.0) Mean Corpuscular Volume 87.6 FL (80.0-100.0) Mean Corpuscular Hemoglobin 29.3 PG (27.0-34.0) Mean Corpuscular Hemoglobin Concent 33.4 % (32.0-36.0) Red Cell Distribution Width 13.2 % (11.6-17.2) Platelet Count 196 TH/MM3 (150-450) Mean Platelet Volume 10.2 FL (7.0-11.0) Neutrophils (%) (Auto) 69.6 % (16.0-70.0) Lymphocytes (%) (Auto) 20.5 % (9.0-44.0) Monocytes (%) (Auto) 7.7 % (0.0-8.0) Eosinophils (%) (Auto) 1.7 % (0.0-4.0) Basophils (%) (Auto) 0.5 % (0.0-2.0) Neutrophils # (Auto) 10.6 TH/MM3 (1.8-7.7) Lymphocytes # (Auto) 3.1 TH/MM3 (1.0-4.8) Monocytes # (Auto) 1.2 TH/MM3 (0-0.9) Eosinophils # (Auto) 0.3 TH/MM3 (0-0.4) Basophils # (Auto) 0.1 TH/MM3 (0-0.2) CBC Comment DIFF FINAL Differential Comment Result Diagram: 03/12/17 0520 03/12/17 0420 Telemetry: NSR (1) Severe aortic stenosis (2) S/P AVR (aortic valve replacement) Plan: on ASA, Plavix , BB gentle diuresis OOB, ambulate CM for eval for discharge to rehab improved Pulm toileting (3) Hyperlipemia Plan: on statin (4) Hypertension Plan: controlled (5) GERD (gastroesophageal reflux disease) Shira Bustillo Mar 12, 2017 10:26
[2017-03-12] MEDS ORDERED: FERR325T20 PO (10:35)
[2017-03-12] MEDS ORDERED: ASPI81CH25 PO (10:35)
[2017-03-12] MEDS ORDERED: METO25TA3 PO (10:35)
[2017-03-12] MEDS ORDERED: HYDR-3516 PO (10:35)
[2017-03-12] MEDS ORDERED: PLAV75TA29 PO (10:35)
[2017-03-12] MEDS ORDERED: DOCU1CAP39 PO (10:35)
[2017-03-12] MEDS ORDERED: LISI-515 PO (10:35)
[2017-03-12] MEDS ORDERED: POLY17S PO (10:35)
--- NOTE | 2017-03-12 10:47 | HHI.DS ---
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 Mini-Sternotomy 03/09/17 2. Aortic Valve Replacement with a 21mm Mosaic Cinch II Tissue valve Brief History 71/ female admitted as an outpt , recent hx of syncopal episode, with full ED workup / Echo revealed severe Aortic stenosis , preserved LV function , She underwent cardiac cath which revealed normal coronaries PMH: severe , GERD, HTN, Obesity, HLP surgery : 03/09 Mini-Sternotomy, Aortic Valve Replacement with a 21mm Mosaic Cinch II Tissue valve crystalloid 3200cc, extubated after surgery CBC/BMP: 03/12/17 0520 03/12/17 0420 Significant Findings Laboratory Tests Test 03/10/17 04:10 03/11/17 05:00 03/12/17 04:20 03/12/17 05:20 White Blood Count 17.7 TH/MM3 (4.0-11.0) 20.0 TH/MM3 (4.0-11.0) 15.3 TH/MM3 (4.0-11.0) Red Blood Count 2.97 MIL/MM3 (4.00-5.30) 2.94 MIL/MM3 (4.00-5.30) 2.68 MIL/MM3 (4.00-5.30) Hemoglobin 8.8 GM/DL (11.6-15.3) 8.8 GM/DL (11.6-15.3) 7.8 GM/DL (11.6-15.3) Hematocrit 25.9 % (35.0-46.0) 25.7 % (35.0-46.0) 23.5 % (35.0-46.0) Random Glucose 135 MG/DL (74-106) 136 MG/DL (74-106) 113 MG/DL (74-106) Calcium Level 8.2 MG/DL (8.5-10.1) 8.4 MG/DL (8.5-10.1) 8.0 MG/DL (8.5-10.1) Estimat Glomerular Filtration Rate 70 ML/MIN (>89) 64 ML/MIN (>89) 83 ML/MIN (>89) Neutrophils (%) (Auto) 78.5 % (16.0-70.0) Neutrophils # (Auto) 15.7 TH/MM3 (1.8-7.7) 10.6 TH/MM3 (1.8-7.7) Monocytes # (Auto) 1.6 TH/MM3 (0-0.9) 1.2 TH/MM3 (0-0.9) Blood Urea Nitrogen 22 MG/DL (7-18) 19 MG/DL (7-18) Sodium Level 134 MEQ/L (136-145) Imaging Last Impressions Chest X-Ray 03/12/17 0600 Signed Impressions: Service Date/Time: Sunday, March 12, 2017 06:16 - CONCLUSION: 1. No significant pneumothorax. 2. Mildly worsening bilateral lower lobe airspace consolidation. Alex Alejandro MD PE at Discharge GENERAL: A&O x 3, up in chair feels fair SKIN: Warm and dry. prevena dressing to chest HEAD: Atraumatic. Normocephalic. EYES: Pupils equal and round. No scleral icterus. No injection or drainage. ENT: No nasal bleeding or discharge. Mucous membranes pink and moist. NECK: Trachea midline. No JVD. CARDIOVASCULAR: Regular rate and rhythm. mild general edema RESPIRATORY: No accessory muscle use. diminished in bases R>L Breath sounds equal bilaterally. GASTROINTESTINAL: Abdomen soft, non-tender, nondistended. Hepatic and splenic margins not palpable. + BM MUSCULOSKELETAL: Extremities without clubbing, cyanosis, or edema. No obvious deformities. NEUROLOGICAL: Awake and alert. No obvious cranial nerve deficits. Motor grossly within normal limits. Five out of 5 muscle strength in the arms and legs. Normal speech. PSYCHIATRIC: Appropriate mood and affect; insight and judgment normal. Hospital Course 03/10 doing well, no pressors, weaned off insulin gtt gentle diuresis on ASA, Plavix amiodarone , start low dose BB transfer to stepdown unit 03/11 ambulated in hallway feels fair, additional BB given and diuretic chest tube drained 130/ 12 hrs re-eval for removal later today 03/12 post chest tube removal CXR stable, no PTX some right lower lobe atelectasis need to use IS and acapella continue diuretic start ferrous sulfate recheck HGB in one week stable for dc to rehab, spoke with family ( [place] [address] [place] ) they are concerned about her going home will dc when bed available Pt Condition on Discharge: Good Discharge Disposition: Discharge to SNF Discharge Instructions DIET: Follow Instructions for: Heart Healthy Diet Activities you can perform: Shower Only-No Bath Activities to avoid: Strenuous Activity, Driving Additional Activity Instructio: no lifting > 8 lbs or gallon of milk Follow up Referrals: Cardiology with IVAN LUGO PCP Follow-up with Jm Chairez [facility] Surgical with Keshav Santiago MD Vascular Surgery with Naseem Amaya MD New Orders: CBC NO DIFF - 1 Week New Medications: Aspirin (Aspirin Low Strength) 81 Mg Chew 81 MG PO DAILY for Blood Clot Prevention, #100 EA 2 Refills Clopidogrel (Plavix) 75 Mg Tab 75 MG PO DAILY for Blood Clot Prevention, #30 TAB 2 Refills Docusate Sodium (Dok) 100 Mg Cap 100 MG PO BID for Constipation, #60 CAP Ferrous Sulfate (Ferosul) 325 Mg (65 Mg Iron) Tablet 325 MG PO BID@12,17 for anemia , #60 TAB 0 Refills Hydrocodone-Acetaminophen (Hydrocodone-Acetaminophen) 5-325 mg Tab 1 TAB PO Q6H PRN for PAIN SCALE 1 TO 5, #40 TAB 0 Refills Lisinopril (Lisinopril) 20 Mg Tab 20 MG PO DAILY for Blood Pressure Management, #30 TAB 2 Refills Metoprolol Tartrate (Metoprolol Tartrate) 25 Mg Tab 25 MG PO BID for Blood Pressure Management, #60 TAB 2 Refills Polyethylene Glycol 3350 Powder (Polyethylene Glycol 3350 Powder) 17 Gram Pow 17 GM PO DAILY for Constipation, #30 PACK Continued Medications: Allopurinol (Allopurinol) 100 Mg Tab 100 MG PO DAILY for Gout, #30 TAB 0 Refills Atorvastatin (Atorvastatin) 10 Mg Tab 10 MG PO HS for Cholesterol Management, #30 TAB 0 Refills Calcium Polycarbophil (Fibercon) 625 Mg Tab 1250 MG PO DAILY PRN for CONSTIPATION, TAB 0 Refills Multiple Vitamin (Multi-Vitamin Daily) 1 Tab Tab 1 TAB PO DAILY for Nutritional Supplement, TAB 0 Refills Omeprazole (Omeprazole) 20 Mg Tab 20 MG PO HS, #30 TAB 0 Refills Discontinued Medications: Amlodipine (Amlodipine) 10 Mg Tab 10 MG PO HS for Blood Pressure Management, #30 TAB 0 Refills Fosinopril (Fosinopril) 40 Mg Tab 40 MG PO HS, #30 TAB 0 Refills Glucosamine-Chondroitin (Glucosamine-Chondroitin) 500-400 Mg Tab 1 TAB PO DAILY for Herbal Supplements, TAB 0 Refills Shira Bustillo Mar 12, 2017 10:47
[2017-03-12] MEDS ORDERED: POTA-163 PO (10:48)
[2017-03-12] MEDS ORDERED: FURO1TAB60 PO (10:48)
[2017-03-12] MEDS ORDERED: FERROUS SULFATE 325 MG (65 MG ELEMENTAL IRON) TAB PO SCH (12:00)
--- NOTE | 2017-03-29 11:32 | HHI.FF ---
Face to Face Verification Diagnosis: (1) Severe aortic stenosis (2) S/P AVR (aortic valve replacement) Home Health Nursing Order: Signs/symptoms of disease process Medication education-adverse effect Wound care and dressing changes Nursing assessment with vital signs Instructions: Incentive spirometry Q1 hr x 10, while awake, also use acapella device hourly whole awake Sternal Breast Bone Precautions: NO pushing or pulling, ( pt must use sternal pillow to support chest with all activities and with coughing ( takes up to 3 months breast bone to heal ) Daily incision care: ok to shower daily, no tub bath. Wash all incisions with liquid dial soap, clean wash cloth to each site, rinse and pat dry. Observe for any signs of infection, such as drainage which is dark yellow, downs, green or foul smelling. Immediately report to the surgeon any drainage from the chest incision, or legs, and for any abnormal drainage from the chest tube sites. Notify surgeon if any temp >101.5 degrees F. When specialty dressing removed/ or if you do not have one, continue to shower daily as above, then rinse and pat incision dry and paint with betadine daily x 5 days. Allow steri strips to fall off if you have any. Avoid lotions, creams, salves, oils, etc. for the first month F/U appointment: as per [place] instructions: PCP in 2 weeks, CV surgeon 2 weeks, Cigar Maker 3-4 weeks For any questions regarding incisions/ dressing / meds / post op care or above Symptoms, Wednesday 8am-5pm Heart & Vascular Surgery Office ( Dr. Santiago & Dr. Sommer), After Hours / Nights (5pm -8am) Weekends and Holidays Please call [facility] Card[facility] Care Unit ([facility]) Charge Nurse Heart and Vascular Surgery patients *Special attention to sternal dressing Mandatory frequency Assess and evaluation, 4 days in a row The next week 3X week 2 times a week for 4 weeks 1 time a week for 5 weeks Schedule Heart and Vascular patients for full 60 day certification period Initial visit Review Open Heart Surgery Discharge Instructions (Sternal precautions, Activity, Elastic hose, Incision care, Driving, Incentive spirometry, Smoking, [place], Work and other) Need Betadine to paint incision Medication reconciliation Importance of follow up care/ check on appointments Make calendar record temperature daily When to call [facility] at Home nurse, review instructions, phone list Incentive Spirometry, demonstration Visit 1- Begin discharge instruction for patient family and/ or caregiver using teach back method- Signs and symptoms of infection Disease characteristics Medicines and side effects Foods and nutrition/ appetite Infection control/ hand washing/ hygiene Visit 2- Continue teaching Discharge instructions- include additional information on smoking cessation , sternal dressing (sternal vac) Visit 3- Continue teaching- Cough and deep breathing, incision monitoring. Choose my plate Visit 4- Continue teaching- Discuss limitations Discuss how they are feeling Discuss progress toward goals Remaining visits- continue teaching and monitoring For any questions please call : I have seen patient Isabel Beckman on 03/29/17. My clinical findings support the need for the requested home health care services because: Deconditioned w/ increased weakness I certify that my clinical findings support that this patient is homebound because: Post-op weakness Shira Bustillo Mar 29, 2017 11:32
== END 2017-03-12 15:50 | DRG 220 ==
LOC: HSDI 03-09 05:11 → HCVR 03-09 13:50 → HCIN 03-10 15:31
PROVIDERS: ADMIT Thoracic Surgery (Cardiothoracic Vascular Surgery); ATTEND Thoracic Surgery (Cardiothoracic Vascular Surgery)
PROC: 02RF08Z Replacement of Aortic Valve with Zooplastic Tissue, Open Approach (ICD-10-PCS; principal; 2017-03-09 07:20)
PROC: 5A1221Z Performance of Cardiac Output, Continuous (ICD-10-PCS; 2017-03-09 07:20)
DX: I35.0 Nonrheumatic aortic (valve) stenosis (principal); Z68.42 Body mass index [BMI] 45.0-49.9, adult; I10 Essential (primary) hypertension; D50.0 Iron deficiency anemia secondary to blood loss (chronic); I35.2 Nonrheumatic aortic (valve) stenosis with insufficiency; K21.9 Gastro-esophageal reflux disease without esophagitis; E78.5 Hyperlipidemia, unspecified; E66.9 Obesity, unspecified; M10.9 Gout, unspecified; K59.00 Constipation, unspecified
CPT/HCPCS: 71010; 76937; 80048; 82948; 83735; 85014; 85025; 85027; 86850; 86900; 86901; 86920; 87015; 87070; 87102; 87116; 87205; 87206; 88305; 88311; 93005; 93318; 94002; 94150; 94640; 94664; 94667; 94668; J0131; J0690; J1644; J1815; J1817; J1885; J1940; J2150; J2250; J2370; J2720; J3010; J3370; J3475; J3480; J7040; J7050; J7120; P9045; P9047